=== PATIENT | male | born 1955 | race Caucasian/White ===

== ENCOUNTER → 2018-07-14 | Outpatient (CLI) | payer MEDICARE ==
[~2018-07-14] MED LIST: GADOBUTROL 10 MMOL/10 ML (GADAVIST) VIAL IV ONE
--- NOTE | 2018-07-14 11:49 | Diagnostic Imaging Report ---
CLINICAL INDICATION: Patient with headaches and dizziness. Ringing and swishing sound in the right ear. EXAM: MRI of the brain/ IACs performed without and with 8 cc of Gadavist IV contrast. Sequences include axial T2, axial FLAIR, axial T1, axial gradient echo, axial 3-D FIESTA, coronal T1 thin, axial T1 thin, coronal T1 thin post IV contrast, axial T1 thin post IV contrast, axial T1 post IV contrast whole brain, coronal T1 fat-sat post IV contrast whole brain, and sagittal T1 post IV contrast whole brain. COMPARISONS: None. FINDINGS: TEMPORAL BONE STRUCTURES: Unremarkable. The internal auditory canal, otic capsule, middle ear, and temporal bone structures have normal anatomic appearance and are unremarkable. There is no abnormal fluid in the mastoid air cells seen. The visualized nerves VII and VIII within the IACs bilaterally and cisternal portions have normal appearance. CISTERNAL STRUCTURES: There is no cisternal mass seen. The remainder of the visualized cranial nerves in the basal cistern regions are unremarkable. BRAIN PARENCHYMA: There is a small developmental venous anomaly involving the left frontal lobe region. There is mildly confluent high T2 signal along the periventricular regions which may be from age-related changes. The brain parenchymal volume appears appropriate for patient's age. There is mild high T2 signal within the favio which may be from chronic small vessel ischemic changes. There is no significant architectural distortion, midline shift, or herniation. There is no abnormal IV contrast enhancement or diffusion restriction signal changes. VENTRICLES: Unremarkable with no hydrocephalus. VISUALIZED INTRACRANIAL VESSELS: Unremarkable as visualized. SKULL/ ORBITS: Unremarkable. VISUALIZED PARANASAL SINUSES: There is mild mucosal thickening involving the right maxillary sinus. IMPRESSION: 1: Unremarkable MRI of the internal auditory canals, temporal bone structures, and basal cisterns. 2: There is a small left frontal lobe developmental venous anomaly. Otherwise, unremarkable MRI of the brain for age. 3: Mild right maxillary sinus disease. Dictated by: Dictated on workstation # [id number]
== END ==
LOC: RAD 09:02
PROVIDERS: ATTEND Otolaryngology Otolaryngology/Facial Plastic Surgery
DX: J32.0 Chronic maxillary sinusitis (principal); Q28.3 Other malformations of cerebral vessels; H91.8X9 Other specified hearing loss, unspecified ear
CPT/HCPCS: 70553

== ENCOUNTER 2021-08-02 20:33 | Outpatient (CLI) | payer OTHER | END 2021-08-03 06:20 | disposition home or self-care (01) | LOC: SLEEP 20:33 | PROVIDERS: ATTEND Nurse Practitioner | DX: G47.33 Obstructive sleep apnea (adult) (pediatric) (principal); I10 Essential (primary) hypertension | CPT/HCPCS: 95810 ==

== ENCOUNTER → 2022-03-20 | Outpatient (CLI) | payer OTHER ==
--- NOTE | 2022-03-20 12:02 | Diagnostic Imaging Report ---
Clinical Indication: AAA screening. Exam: Ultrasound of the abdominal aorta. Comparison study: None. Findings: There is vascular irregularity involving the abdominal aorta and bilateral common iliac arteries, likely related to atherosclerotic disease. The maximum AP and transverse diameters for the upper, mid, and distal abdominal aorta are 2.2 cm x 2.1 cm, 1.2 cm x 1.4 cm, and 1.5 cm x 1.7 cm, respectively. Both common iliac artery contours are smooth with normal caliber with the right and left measuring 1.0 cm and 1.0 cm in greatest AP dimension. Impression: There is no evidence of aneurysmal dilation of the abdominal aorta or bilateral common iliac arteries. Dictated by: Dictated on workstation # [id number]
== END ==
LOC: RAD FS 09:02
PROVIDERS: ATTEND Nurse Practitioner
DX: Z01.89 Encounter for other specified special examinations (principal)
CPT/HCPCS: 76775

== ENCOUNTER 2022-03-26 22:02 | Emergency (ER) | payer OTHER ==
[~2022-03-26] VITALS: Ht 175 cm; Wt 82.6 kg
--- NOTE | 2022-03-26 22:17 | ED Fall/Injury ---
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 Did not pass out, remembers all events, no nausea or vomiting, no new weakness or numbness, no new vision changes. Has some mild neck discomfort, but has been ambulating and moving his neck without any issue. Denies any back pain, extremity pain, or pain anywhere else that is new. Does have a small cut to his right hand that he endorses. He is able to use the hand without difficulty. Tetanus vaccine updated last week. Otherwise denying any other acute complaints. He does take aspirin and Plavix. Allergies and Home Medications Allergies Coded Allergies: No Allergy Information Available (Unverified , 07/14/18) Patient Home Medication List Home Medication List Reviewed: Yes Review of Systems Review of Systems Constitutional: No fever Eyes: No Symptoms Reported Ears, Nose, Mouth, Throat: no symptoms reported Respiratory: no symptoms reported Cardiovascular: no symptoms reported Gastrointestinal: no symptoms reported Genitourinary: no symptoms reported Musculoskeletal: see HPI Skin: see HPI Psychiatric/Neurological: See HPI All Other Systems Reviewed Negative Unless Noted: Yes Past Gzgvmes-Nfukjb-Ujhfkr Hx Patient Social History Tobacco Use?: No Physical Exam Vital Signs Vital Signs - First Documented 03/26/22 22:10 Temp 36.2 Pulse 72 Resp 18 B/P (MAP) 137/68 (91) Pulse Ox 96 O2 Delivery Room Air Capillary Refill : Height, Weight, BMI Height: '" Weight: lbs. oz. kg; BMI Method: General Appearance: WD/WN, no apparent distress HEENT: PERRL/EOMI, normal ENT inspection, pharynx normal Neck: non-tender, full range of motion, supple, normal inspection Cardiovascular: regular rate, rhythm, no edema, no murmur Respiratory: chest non-tender, lungs clear, normal breath sounds, no respiratory distress, no accessory muscle use Gastrointestinal: normal bowel sounds, non tender, soft; No distended, No guarding, No rebound Back: normal inspection, no CVA tenderness, no vertebral tenderness Extremities: normal range of motion, non-tender, normal inspection, no pedal edema, no calf tenderness, normal capillary refill Neurologic/Psychiatric: rush seater II-XII nml as tested, no motor/sensory deficits, alert, normal mood/affect, oriented x 3 Skin: normal color, warm/dry, other (Superficial excoriation to the dorsal aspect of the right hand) Lymphatic: no adenopathy Mansi Coma Score Best Eye Response: (4) Open Spontaneously Best Verbal Response: (5) Oriented Best Motor Response: (6) Obeys Commands Progress/Results/Core Measures Results/Orders My Orders Orders - MARTHA ARTHUR MD Ct Head/Cervical Spine Wo (03/26/22 22:15) Vital Signs/I&O 03/26/22 22:10 Temp 36.2 Pulse 72 Resp 18 B/P (MAP) 137/68 (91) Pulse Ox 96 O2 Delivery Room Air Progress Progress Note : Progress Note Patient presented after essentially slipping and hitting his head. ABCs were intact and vitals were stable on presentation with a GCS of 15. Physical exam with just some mild excoriation to his right hand but otherwise no significant abnormality. CT head and cervical spine ordered because of his age as well as he is on Plavix. This was negative for any subdural hemorrhage, or any other type of brain bleed, no fracture or dislocation as well. Likely the patient fulton s have a concussion given his headache. I believe he is stable for discharge with outpatient follow-up. He was sent home with strict return precautions. Diagnostic Imaging Diagonstic Imaging: CT (head and c spine) Comments NAME: RYAN CALLAWAY [facility] REC#: [id number] PT STATUS: REG ER : 1955 PHYSICIAN: MARTHA ARTHUR MD ADMIT DATE: 03/26/22/ER FS Signed Date of Exam:03/26/22 CT HEAD/CERVICAL SPINE WO PROCEDURE: CT head and CT cervical spine without contrast. TECHNIQUE: Multiple contiguous axial images were obtained through the brain and cervical spine without the use of intravenous contrast. Sagittal and coronal reformations through the cervical spine were then performed. Auto Exposure Controls were utilized during the CT exam to meet ALARA standards for radiation dose reduction. INDICATION: Head trauma from a fall, anticoagulation CT head without contrast The ventricles are normal in size, shape and position. There are no masses or hemorrhages. There are no extra-axial fluid collections. IMPRESSION: Negative CT head CT cervical spine: Odontoid is intact. Atlantoaxial and basicervical relationships are normal. C1 ring is intact. Vertebral alignment is normal. There is narrowing of the atlantoaxial space. There is disc space narrowing C4-C5, C5-C6, C6-C7 and C7-T1 with osteophytes forming along the vertebral body endplates at each of those levels. There are some degenerative change of the uncovertebral joints from C3 through C7. There are no fractures or prevertebral soft tissue swelling. IMPRESSION: Degenerative changes of the cervical spine. No acute abnormalities seen. Dictated by: Dictated on workstation # [id number] Dict: 03/26/222236 Trans: 03/26/222239 TCB [id number] Interpreted by: AMANDA ECKERT MD Electronically signed by: AMANDA ECKERT MD 03/26/222239 Departure Impression Primary Impression: Fall Qualified Codes: W19.XXXA - Unspecified fall, initial encounter Additional Impression: Closed head injury Qualified Codes: S09.90XA - Unspecified injury of head, initial encounter Disposition: HOME, SELF-CARE Condition: Stable Departure-Patient Inst. Decision time for Depature: 22:51 Referrals: IRAIDA DAVEY MD (PCP/Family) Primary Care Physician Patient Instructions: Concussion, Adult ED Add. Discharge Instructions: Fortunately the scan of your head and neck were normal with no new findings. Specifically there is no bleeding or anything broken. Take ibuprofen and/or Tylenol as needed for pain. You likely do have a mild concussion which will cause headache, sometimes difficulty focusing, and other symptoms depending on the severity. Typically this gets better after a couple weeks. Neurologist are able to help with symptoms if they persist. Work/School Note: Family Work Note, Patient Received Medical Care In the Emergency Department On: Mar 26, 2022 Patient Will Be Able to Return to Work/School On: Mar 27, 2022 Work Release Form Date Seen in the Emergency Department: Mar 26, 2022 Return to Work: Mar 27, 2022 Restrictions: No Restrictions MARTHA ARTHUR MD Mar 26, 2022 22:17
--- NOTE | 2022-03-26 22:41 | Diagnostic Imaging Report ---
PROCEDURE: CT head and CT cervical spine without contrast. TECHNIQUE: Multiple contiguous axial images were obtained through the brain and cervical spine without the use of intravenous contrast. Sagittal and coronal reformations through the cervical spine were then performed. Auto Exposure Controls were utilized during the CT exam to meet ALARA standards for radiation dose reduction. INDICATION: Head trauma from a fall, anticoagulation CT head without contrast The ventricles are normal in size, shape and position. There are no masses or hemorrhages. There are no extra-axial fluid collections. IMPRESSION: Negative CT head CT cervical spine: Odontoid is intact. Atlantoaxial and basicervical relationships are normal. C1 ring is intact. Vertebral alignment is normal. There is narrowing of the atlantoaxial space. There is disc space narrowing C4-C5, C5-C6, C6-C7 and C7-T1 with osteophytes forming along the vertebral body endplates at each of those levels. There are some degenerative change of the uncovertebral joints from C3 through C7. There are no fractures or prevertebral soft tissue swelling. IMPRESSION: Degenerative changes of the cervical spine. No acute abnormalities seen. Dictated by: Dictated on workstation # [id number]
[2022-03-26 23:00] VITALS: BP 137/68
== END 2022-03-26 23:06 | disposition home or self-care (01) ==
LOC: EDUNIT# 22:02 → ER FS 22:03
DX: S09.90XA Unspecified injury of head, initial encounter (principal); S60.511A Abrasion of right hand, initial encounter; Z28.310 Unvaccinated for COVID-19; Z79.02 Long term (current) use of antithrombotics/antiplatelets; Z79.82 Long term (current) use of aspirin; W01.198A Fall on same level from slipping, tripping and stumbling with subsequent striking against other object, initial encounter
CPT/HCPCS: 70450; 72125